=== PATIENT | female | born 1970 | race Two or more races ===

== ENCOUNTER 2018-02-21 04:15 | Emergency (ER) | payer BC ==
[~2018-02-21] VITALS: Ht 157.5 cm; Wt 122.5 kg
[2018-02-21 05:42] LABS: Basophils # (auto) 0.1 uL; Basophils % (auto) 0.9 % (0.0-2.0); Eosinophils # (auto) 0.3 uL; Eosinophils % (auto) 2.8 % (0.0-7.0); Hematocrit 41.9 % (36.0-46.0); Lymphocytes # (auto) 3.1 uL; Lymphocytes % (auto) 27.8 % (10.0-50.0); Mean Corpuscular Hemoglobin 29.8 pg (28.0-32.0); Mean Corpuscular Hgb Conc. 33.3 g/dL (32.0-36.0); Mean Corpuscular Volume 89.3 fL (80.0-100.0); Monocytes # (auto) 0.6 uL; Monocytes % (auto) 5.1 % (0.0-12.0); Neutrophils # (auto) 7.1 uL; Neutrophils % (auto) 63.4 % (37.0-80.0); Platelet Count (auto) 313 10^3/uL (140-450); Red Blood Cells 4.69 10^6/uL (4.0-5.20); Red Cell Distribution Width 13.9 % (11.8-14.3); White Blood Cell 11.2 10^3/uL (4.4-10.8)
[2018-02-21 06:02] LABS: Albumin 3.8 g/dL (3.4-5.0); Anion Gap 8 (5-15); Blood Urea Nitrogen 13 mg/dL (7-18); Calcium 9.1 mg/dL (8.5-10.1); Carbon Dioxide 28 mmol/L (21-32); Chloride 99 mmol/L (98-107); Glucose 108 mg/dL (74-106); Potassium 4.5 mmol/L (3.5-5.1); Sodium 135 mmol/L (136-145)
[2018-02-21 06:08] LABS: Alanine Aminotransferase 28 U/L (13-56); Alkaline Phosphatase 86 U/L (45-117); Aspartate Aminotransferase 16 U/L (15-37); BUN/Creatinine Ratio 17.8; Bilirubin, Total 0.3 mg/dL (0.2-1.0); GFR African American 110 mL/min; GFR Non-African American 91 mL/min; Total Protein 8.7 g/dL (6.4-8.2)
[2018-02-21 08:52] LABS: Urine Bacteria MANY /hpf (None Seen); Urine Blood Negative /uL (Negative); Urine Mucus FEW (None Seen); Urine Specific Gravity 1.016 (1.001-1.035); Urine WBC 5 /hpf (0 - 5)
[2018-02-21 11:10] VITALS: BP 111/67
== END 2018-02-21 12:00 | disposition home or self-care (01) ==
LOC: ER 04:20
DX: N39.0 Urinary tract infection, site not specified (principal); M79.602 Pain in left arm; R51 Headache; F41.9 Anxiety disorder, unspecified
CPT/HCPCS: 36415; 71045; 80053; 81001; 84484; 85025; 93005

== ENCOUNTER 2018-06-29 15:17 | Emergency (ER) | payer BC, OTHER ==
[~2018-06-29] VITALS: Ht 154.9 cm; Wt 113.4 kg
[2018-06-29 16:15] VITALS: BP 164/88
[2018-06-29] MEDS ORDERED: diphenhdrAMINE HCL 12.5 MG/5 ML UD PO ONE (16:45)
[2018-06-29] MEDS ORDERED: PROMETHAZINE HCL 25 MG/ML 1ML IM ONE (16:45)
[2018-06-29] MEDS ORDERED: KETOROLAC TROMETH 60MG/2ML VIAL IM ONE (16:45)
== END 2018-06-29 16:47 | disposition home or self-care (01) ==
LOC: MERGE 15:19 → ER 15:19 → EDBD 15:19 → ER 16:47
DX: R51 Headache (principal); J32.9 Chronic sinusitis, unspecified
CPT/HCPCS: 96372; 99283; J1885; J2550